=== PATIENT | female | born 1970 | race Caucasian/White ===

== ENCOUNTER → 2017-05-09 | Outpatient (CLI) | payer BC ==
[~2017-05-09] MED LIST: GADAVIST IV PRN; LIDO/EPINEPHRINE/SOD BICARB 20 ML VIAL INFIL ONE; XYLOCAINE 1%/SOD BICARB 20 ML VIAL INFIL ONE
--- NOTE | 2017-05-09 12:04 | Discharge Instructions ---
Discharge Instructions Procedure Procedure Date: May 09, 2017. Reason for visit: Right Mass Like Enhancement. Discharge Discharge Date: May 09, 2017. Discharge Diagnosis: post right breast MRI guided biopsy in the 7:00 posterior axis Instructions Activity Recommendations: Additional Limitations (see below) Return to School/Work: no limitations Recommended Home Diet: No Limitations Provider Instructions: ACTIVITY RECOMMENDATIONS: * No lifting, pushing, pulling or exercising the affected side for three days. RETURN TO SCHOOL/WORK: * You may return to work/school after the procedure, but do not perform any strenuous activities for 24 to 48 hours. MEDICATIONS: * Tylenol (two 325 mg) every four to six hours if needed for mild pain (if not allergic to Tylenol). DIET: * Resume previous diet. SPECIAL CARE INSTRUCTIONS: * Keep biopsy site dry for 24 hours. May shower after 24 hours, but do not soak (bathe) incision. * May remove Tegaderm (plastic patch) tomorrow AFTER showering. * Leave the steri-strips on for one week. Allow the steri-strips to fall off by themselves. If not off after one week, you may remove them. You may place a Bandaid crosswise over the strips, if desired. * Apply ice 10 minutes on and 10 minutes off as needed. * Wear a bra at bedtime to sleep more comfortably for 2-3 days. * Your referring physician should have the results after approximately 5 to 7 business days. * Call for unusual bleeding, fever, drainage, etc or if you have any questions call [phone] during normal business hours or after hours call Dr Campbell, . FOLLOW UP VISIT: Follow-up with Referring Physician as scheduled. Bryn Fernandez Recommendations: Call your doctor if: * Temperature above 101 degrees * Pain not relieved by pain medicine ordered * There is increased drainage or redness from any incision * You have any unanswered questions or concerns. Your Doctors Instructions noted above were prepared by provider Radha Campbell. Patient Signature Section: Patient Instructions Signature Page Bobbi Carlos Patient (or Guardian) Signature/Date: I have read and understand the instructions given to me by my caregivers. Caregiver/RN/Doctor Signature/Date: The above-named patient and/or guardian has received patient instructions on this date. + Original Patient Signature Page (only) stays with chart. Please make copy for patient.
--- NOTE | 2017-05-09 15:28 | MAMMOGRAPHY REPORT ---
THIS REPORT HAS BEEN AMENDED. MRI BIOPSY RIGHT BREAST: 05/09/2017 CLINICAL HISTORY: 10 x 24 mm area of non-mass enhancement in the 7:00 posterior right breast seen on recent outside MRI. Patient presented for MRI guided biopsy. COMPARISON: Prior mammograms and attempted stereotactic biopsy dated 04/06/2017, mammograms dated , specimen radiograph 09/01/2016 stereotactic biopsy 08/16/2016 and screening mammograms 07/02, 06/30/2014. PATIENT CONSENT: After explaining the risks, benefits and alternatives of the procedure to the patien t, informed consent was obtained both verbally and in writing. Specific risks include: Bleeding, inf ection, puncture of adjacent structure, medication reaction, breast or lung injury, sampling error. PROCEDURE DESCRIPTION: A timeout was performed prior to starting the procedure, and the right breast was agreed as the site for biopsy. The patient was placed prone on a 1.5 Sandra MRI scanner. The lateral aspect of the right breast was cleansed with ChloraPrep. The right breast was positioned in a dedicated breast coil and MRI guidanc e grid device. After localizing sequences were obtained, pre-and postcontrast axial sequences were obtained, using 8 cc Gadavist without immediate reaction. The postcontrast images confirm the persistence of the non-m ass enhancement in the 7:00 posterior right breast. Using these images, targeting was performed [employer] software. The skin was re-prepped with Betadine through the grid, and after local anesthesia was achieved, an i ntroducer sheath and localizing head mva reactor operator were placed into the right breast via a lateral approach. T he location of the obturator sheath was confirmed with additional axial images. After confirming leah quate placement of the obturator sheath, 10 core biopsy samples were obtained using a BiOxyDyn 9-ga uge vacuum-assisted biopsy device. Post biopsy images demonstrate good sampling of the lesion, therefore, through the introducer sheath, a metallic marker was placed at the biopsy site. The patient tolerated the procedure well and there was no immediate complication. Hemostasis was ach ieved after several minutes of manual compression. The samples were sent to pathology in an appropri ately labeled container. Postprocedure mammography demonstrates a new metallic biopsy marker and no significant hematoma in th e 7:00 posterior right breast, at the site of the biopsied non-mass enhancement seen on MRI. Pending benign pathology results, would recommend a follow-up breast MRI in 6 months to confirm stability an d adequate sampling. IMPRESSION: MRI BIOPSY Status post MRI guided biopsy of non-mass enhancement in the 7:00 posterior right breast, with biopsy marker clip placed at the site. Pending benign pathology results, would recommend a follow-up breast MRI in 6 months to confirm stabi lity and ensure adequate sampling. Further management in the left breast should be made based on the most suspicious imaging modality an d therefore mammographic follow-up and/or biopsy is recommended. The patient will receive notification of the biopsy results from her referring physician. Radha Campbell M.D. 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 The i ntraductal papilloma measures up to 1.5 mm in greatest dimension. It is somewhat controversial wheth er all intraductal papillomas without atypical features such as this case, need to be excised or not. Correlation with clinical and imaging findings is recommended." Given that the non-mass enhancement measured 24 x 10 mm on MRI and the papilloma identified at [facility]ol [facility] was only 1.5 mm, this is likely incidental. Given that no atypical features or evidence of atypi a/DCIS were identified, it seems reasonable to follow with imaging. Therefore, a six-month follow-up breast MRI is recommended. letter sent: Follow Up Recommended 3
--- NOTE | 2017-05-09 15:30 | MAMMOGRAPHY REPORT ---
UNILATERAL RIGHT DIGITAL DIAGNOSTIC MAMMOGRAM TOMOSYNTHESIS: 05/09/2017 CLINICAL HISTORY: Status post MRI guided biopsy of non-mass enhancement in the 7:00 right breast. Luisito alvarez has a personal history of left breast DCIS status post lumpectomy. Please refer to the report from right breast MRI guided biopsy performed at the same time for full de tail. IMPRESSION: POST PROCEDURE IMAGING FOR MARKER PLACEMENT Please refer to the report from right breast MRI guided biopsy performed at the same time for full de tail. Approximately 10% of breast cancers are not detected with mammography. A negative mammographic report should not delay biopsy if a clinically suggestive mass is present. Radha Campbell M.D. ay/:05/09/2017 12:48:35 Insole Reinforcer: Regina QUACH)([employer]), [facility] BI-RADS Code: Post Procedure Imaging For Marker Placement
== END | disposition home or self-care (01) ==
LOC: C.MRI 09:35
PROVIDERS: ATTEND Surgery
DX: R92.8 Other abnormal and inconclusive findings on diagnostic imaging of breast (principal); N63 Unspecified lump in breast; D24.1 Benign neoplasm of right breast

== ENCOUNTER → 2017-10-31 | Outpatient (CLI) | payer OTHER ==
[~2017-10-31] MED LIST changes: -LIDO/EPINEPHRINE/SOD BICARB 20 ML VIAL INFIL ONE; -XYLOCAINE 1%/SOD BICARB 20 ML VIAL INFIL ONE
--- NOTE | 2017-11-01 15:09 | MAMMOGRAPHY REPORT ---
BREAST MRI OF BOTH BREASTS : 10/31/2017 CLINICAL HISTORY: History of left breast cancer status post lumpectomy performed at an outside instit ution August 2016. The patient underwent MRI guided biopsy of the right breast for an area of non-m ass enhancement within the right 7:00 breast, with pathology yielding an intraductal papilloma with u sual ductal hyperplasia and no evidence of atypia or malignancy. The patient presents for short inte rval follow-up after the MRI guided biopsy. COMPARISON: Comparison is made to exams dated: 05/09/2017 mammogram and 05/09/2017 MRI biopsy - [facility]. Outside breast MRI from [facility] dated 04/14/2017. Also prior out side mammograms dated 07/17/2016, 09/01/2016, 03/26/2017. Technique: The patient was placed prone in a dedicated breast imaging coil. Precontrast axial T1-jarrett ghted, axial T2-weighted fat saturation, and axial T1-weighted fat saturation images were obtained. After the administration of 8 mL of Gadavist IV contrast, sequential T1-weighted fat saturation image s were obtained. Subtraction images were obtained of the dynamic contrast enhanced sequences, and 3- D reformations were performed. The [employer] software was used for kinetic analysis. Findings: Right breast: There is mild background parenchymal enhancement. Susceptibility artifact is seen in t he right lower outer quadrant from a biopsy marker clip placed at the time of the MRI guided biopsy. The previously seen non-mass enhancement within the right lower outer quadrant is significantly decr eased in size compared to the prior breast MRI, previously measuring 24 x 10 mm, currently measuring 11 x 4 mm (series 18776 image 75). Given the significant interval decrease in size and given the jn ign pathology on biopsy, the finding is considered benign. The remainder of the right breast demonst rates a few scattered enhancing foci which are stable compared to the prior MRI. There are no new or suspicious enhancing masses or areas of abnormal non-mass enhancement within the right breast. Left breast: There is mild background parenchymal enhancement. Again noted are postsurgical changes in the left upper inner quadrant from prior lumpectomy. The previously seen rim-enhancing post surgi miguel seroma at the lumpectomy bed has significantly decreased in size compared to the prior MRI, previ ously measuring 3.7 x 1.2 cm, now measuring 1.8 x 0.5 cm. There is a focal 13 x 9 mm area of non-mass enhancement within the left lower inner quadrant far inferiorly which demonstrates a persistent kine tic pattern (series 501 image 97). The finding was not clearly evident on the prior breast MRI. Rec ommend additional imaging evaluation with diagnostic mammograms and targeted ultrasound. The remaind er of the left breast demonstrates no suspicious enhancing masses or areas of abnormal non-mass enhan cement. There is no evidence of axillary adenopathy. The chest wall structures are negative. The visualized extramammary soft tissues are grossly unremarkable. IMPRESSION: ACR BI-RADS CATEGORY 0: INCOMPLETE EVALUATION: NEED ADDITIONAL IMAGING EVALUATION 1. Significant interval decrease in size of non-mass enhancement within the right lower outer quadra nt, which was previously biopsied and yielded benign pathology. Given the benign pathology on biopsy and given the interval decrease, the finding is considered benign. No MRI evidence of malignancy in the right breast. 2. Expected posttreatment changes in the left upper inner quadrant from prior lumpectomy, with inter gabby decrease in size of a benign postsurgical seroma at the surgical bed. 3. Newly visualized 13 mm area of non-mass enhancement within the left lower inner quadrant far infe riorly. It is unclear if this could represent postsurgical changes given that it is distant from the lumpectomy bed. The finding is indeterminate and additional imaging evaluation with diagnostic mamm ograms and targeted ultrasound is recommended for further evaluation; routine mammograms of the right breast could be performed at the time of the diagnostic workup given that the most recent routine ma mmograms of the right breast were performed July 2016. Clotilde Payton M.D. 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
== END | disposition home or self-care (01) ==
LOC: C.MRI 08:25
PROVIDERS: ATTEND Surgery
DX: N60.19 Diffuse cystic mastopathy of unspecified breast (principal)